=== PATIENT | male | born 1970 | race Caucasian/White ===

== ENCOUNTER 2019-05-29 03:14 | Emergency (ER) | payer OTHER ==
[2019-05-29 03:36] LABS: Basophils % (A) 0 %; Eosinophils # (A) 0.2 k/uL (0-0.7); Eosinophils % (A) 2 %; HCT 39.7 % (39.0-53.0); HGB 13.5 gm/dL (13.0-17.5); Lymphocytes # (A) 4.3 k/uL (1.0-4.8); Lymphocytes % (A) 36 %; MCH 29.3 pg (25.0-35.0); MCV 86.2 fL (80.0-100.0); Mean Platelet Volume 9.8; Monocytes # (A) 0.5 k/uL (0-1.0); Monocytes % (A) 5 %; Neutrophils # (A) 6.7 k/uL (1.3-7.7); Neutrophils % (A) 56 %; Platelet Count 243 k/uL (150-450); RBC 4.61 m/uL (4.30-5.90); RDW 12.4 % (11.5-15.5)
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
[2019-05-29 03:41] LABS: Albumin 4.4 g/dL (3.5-5.0); Calcium 9.1 mg/dL (8.4-10.2); Total Bilirubin 0.5 mg/dL (0.2-1.3); Total Protein 7.5 g/dL (6.3-8.2)
[2019-05-29 03:45] LABS: INR 0.9 (<1.2); Prothrombin Time 10.2 sec (9.0-12.0)
[2019-05-29 03:47] LABS: Creatine Kinase 245 U/L (55-170)
[2019-05-29 03:55] LABS: Glucose,Whole Blood 150 mg/dL (75-99)
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
[2019-05-29 04:01] LABS: Creatine Kinase MB 4.5 ng/mL (0.0-2.4); Troponin I <0.012 ng/mL (0.000-0.034)
[2019-05-29] MEDS ORDERED: DIPH,PERTUS(ACELL)TETVAC-LF 0.5 ML VIAL IM ONE (04:01)
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
[2019-05-29] MEDS ORDERED: SODIUM CHLORIDE 0.9% 1,000 ML IV STA ×2 (04:30→04:31)
== END 2019-05-29 06:53 | disposition other institution (70) ==
LOC: EC 03:14
DX: S02.2XXA Fracture of nasal bones, initial encounter for closed fracture (principal); S02.40DA Maxillary fracture, left side, initial encounter for closed fracture; S02.40CA Maxillary fracture, right side, initial encounter for closed fracture; S02.85XA Fracture of orbit, unspecified, initial encounter for closed fracture; Z23 Encounter for immunization; V89.2XXA Person injured in unspecified motor-vehicle accident, traffic, initial encounter; Y92.410 Unspecified street and highway as the place of occurrence of the external cause
CPT/HCPCS: 36415; 86900; 86901; 80053; 82150; 82550; 82553; 83605; 83690; 84484; 85025; 85610; 85730; 86850; 80320; 72170; 71045; 72125; 70486; 70450; 71260; 74177; 90715; 99291; 96360; 96361; 90471; Q9967

== ENCOUNTER → 2019-06-28 | Outpatient (CLI) | payer SELFPAY ==
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
== END | disposition home or self-care (01) ==
LOC: RADMRIMAIN 16:14
PROVIDERS: ATTEND Orthopaedic Surgery Orthopaedic Trauma
DX: M19.011 Primary osteoarthritis, right shoulder (principal); M89.8X1 Other specified disorders of bone, shoulder

== ENCOUNTER → 2019-07-07 | Outpatient (CLI) | payer SELFPAY ==
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
== END | disposition home or self-care (01) ==
LOC: RADCTMAIN 12:37
PROVIDERS: ATTEND Nurse Practitioner
DX: S12.001D Unspecified nondisplaced fracture of first cervical vertebra, subsequent encounter for fracture with routine healing (principal)
CPT/HCPCS: 72125

== ENCOUNTER → 2019-08-27 | Outpatient (CLI) | payer OTHER ==
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
== END | disposition home or self-care (01) ==
LOC: RADCTMAIN 14:06
PROVIDERS: ATTEND Nurse Practitioner
DX: M47.22 Other spondylosis with radiculopathy, cervical region (principal); S42.102A Fracture of unspecified part of scapula, left shoulder, initial encounter for closed fracture; S12.001D Unspecified nondisplaced fracture of first cervical vertebra, subsequent encounter for fracture with routine healing
CPT/HCPCS: 72125